=== PATIENT | female | born 1945 | race Caucasian/White ===

== ENCOUNTER → 2016-09-28 | Outpatient (CLI) | payer MEDICARE, BC ==
[~2016-09-28] MED LIST: ASPI-557 PO; CALC-39 PO; CELE100C PO; CHOL100092 PO; CIPR-212 PO; CITA10TA7 PO; CLOP75TA33 PO; CYAN10006 IM; FENO160T12 PO; LABE100T PO; LEVO150T11 PO; LOSA1TAB96 PO; MAGN250T39 PO; METF500T4 PO; NITR0.4T SL; ONDA4TAB7 PO; OXYB5TAB25 PO; PANT40TA27 PO; POTA2TAB18 PO; PSYL0.5240 PO; ZOLE5INF7 IV; [UNRECOGNIZED DRUG - CODE] PO; [UNRECOGNIZED DRUG - CODE] PO
== END ==
LOC: WC.BC 12:31
PROVIDERS: ATTEND Family Medicine
DX: Z12.31 Encounter for screening mammogram for malignant neoplasm of breast (principal); M85.88 Other specified disorders of bone density and structure, other site; E55.9 Vitamin D deficiency, unspecified; N91.0 Primary amenorrhea; Z82.69 Family history of other diseases of the musculoskeletal system and connective tissue; Z87.828 Personal history of other (healed) physical injury and trauma; Z90.710 Acquired absence of both cervix and uterus; Z90.722 Acquired absence of ovaries, bilateral
CPT/HCPCS: 77063; 77080; G0202